=== PATIENT | male | born 1980 | race Caucasian/White ===

== ENCOUNTER 2017-08-02 17:53 | Emergency (ER) | payer BC ==
[~2017-08-02] VITALS: Ht 177.8 cm; Wt 82.1 kg
[2017-08-02 18:04] VITALS: Ht 177.8 cm; Wt 82.1 kg
[2017-08-02 19:33] VITALS: BP 141/82
== END 2017-08-02 19:58 | disposition home or self-care (01) ==
LOC: ED 17:53
DX: M62.830 Muscle spasm of back (principal)
CPT/HCPCS: 72072; J1885; J2270; Q0162